=== PATIENT | female | born 1975 | race Caucasian/White ===

== ENCOUNTER → 2022-05-20 16:34 | Outpatient (CLI) | payer BC, SELFPAY ==
--- NOTE | ~2022-05-20 | MR_ITS ---
EXAMINATION: MR shoulder LT wo con DATE: 05/20/2022 17:25 INDICATION: Left shoulder pain TECHNIQUE: Magnetic resonance imaging (MRI) of the left shoulder was initially performed without intr avenous contrast on 05/13/2022. Sequences included axial PD-weighted FS FSE, coronal oblique PD-weigh yandy FS FSE, coronal oblique T2-weighted FS FSE, sagittal PD-weighted FS FSE and sagittal T1-weighted FSE. The imaging was considered inadequate at the time due to failed fat saturation the patient retur yi for repeat imaging without intravenous contrast on 05/20/2022. Sequences included axial PD-weighte d FS FSE, coronal oblique PD-weighted FS FSE, coronal oblique T2-weighted FS FSE and sagittal PD-weig hted FS FSE. COMPARISON: None. FINDINGS: Coracoacromial arch: The acromion undersurface is curved in morphology (type II). The coracoacromial ligament is normal. S evere acromioclavicular osteoarthritis with small inferiorly directed osteophytes which exerts mild m ass effect upon the supraspinatus myotendinous junction. Rotator cuff: Mild infraspinatus tendinopathy without tear. The supraspinatus, teres minor and subscapularis tendon s are normal. Normal rotator cuff muscle bulk and signal. Biceps tendon, glenoid labrum and glenohumeral cartilage: Long head of the biceps tendon is normal.There is a very small tear at the 12:00 position of the supe rior glenoid labrum. Mild more amorphous increased signal at the posterior superior labrum suggesting mild degeneration. Normal anterosuperior sublabral foramen. Glenohumeral cartilage is normal. Fluid: Physiologic amount of fluid in the glenohumeral joint and biceps tendon sheath. No loose osteochondr al bodies. No abnormal fluid signal in the subacromial/subdeltoid bursa to suggest bursitis. Bones: Normal marrow signal with no edema, fracture or pathologic marrow replacing process. Mild cystic philippe ge at the lesser tuberosity footplate of the subscapularis tendon. IMPRESSION: 1. Mild infraspinatus tendinopathy without tear. 2. Small SLAP tear at the 12:00 position of the superior glenoid labrum with more subtle degeneration of the posterosuperior labrum. 3. Severe acromioclavicular osteoarthritis. Reviewed, dictated and finalized at location B. IMPRESSION: 1. Mild infraspinatus tendinopathy without tear. 2. Small SLAP tear at the 12:00 position of the superior glenoid labrum with mo re subtle degeneration of the posterosuperior labrum. 3. Severe acromioclavicular osteoarthritis.
== END ==
PROVIDERS: PCP Orthopaedic Surgery; Visit Provider Orthopaedic Surgery
DX: M19.012 Primary osteoarthritis, left shoulder (principal); S43.432A Superior glenoid labrum lesion of left shoulder, initial encounter; X58.XXXA Exposure to other specified factors, initial encounter
CPT/HCPCS: 73221

== ENCOUNTER 2024-03-09 10:54 | Outpatient (CLI) | payer BC, SELFPAY ==
--- NOTE | ~2024-03-09 | MR_ITS ---
EXAMINATION: MR shoulder LT wo con DATE: 03/09/2024 11:42 INDICATION: Chronic left shoulder pain TECHNIQUE: Magnetic resonance imaging (MRI) of the left shoulder was performed without intravenous co ntrast. Sequences included axial PD-weighted FS FSE, coronal oblique PD-weighted FS FSE, coronal obli que T2-weighted FS FSE, sagittal PD-weighted FS FSE, and sagittal T1-weighted SE. COMPARISON: 05/20/2022 FINDINGS: Coracoacromial arch: The acromion undersurface is curved in morphology (type II). The coracoacromial ligament is normal. S evere acromioclavicular osteoarthritis. Rotator cuff: Mild infraspinatus tendinopathy without discrete tear. The infraspinatus, teres minor and subscapular is tendons are normal. Normal rotator cuff muscle bulk and signal. Biceps tendon, glenoid labrum and glenohumeral cartilage: Long head of the biceps tendon is normal. Small SLAP tear with linear increased signal extending darlene pherally into the substance of the superior labrum at the 12:30-12:00 position. Glenohumeral cartilag e is normal. Fluid: Physiologic amount of fluid in the glenohumeral joint and biceps tendon sheath. No loose osteochondr al bodies. No abnormal fluid signal in the subacromial/subdeltoid bursa to suggest bursitis. Bones: Bone alignment is normal. No fracture or pathologic marrow replacing process. Persistent mild degener ative cystic change at the lesser tuberosity footplate of the subscapularis tendon. IMPRESSION: 1. Unchanged mild infraspinatus tendinopathy without tear. 2. Small SLAP tear at the 11:30-12:00 position of the superior glenoid labrum. 3. Severe acromioclavicular osteoarthritis. Reviewed, dictated and finalized at location A.
== END 2024-03-09 10:55 ==
LOC: GOSHIMG 10:55
PROVIDERS: PCP Orthopaedic Surgery; Visit Provider Orthopaedic Surgery
DX: M19.012 Primary osteoarthritis, left shoulder (principal); S43.432A Superior glenoid labrum lesion of left shoulder, initial encounter; X58.XXXA Exposure to other specified factors, initial encounter
CPT/HCPCS: 73221